=== PATIENT | female | born 1970 | race American Indian/Alaskan Native ===

== ENCOUNTER 2020-11-15 11:42 | Day surgery (SDC) | payer BC, MEDICAID ==
[2020-11-07 12:29] LABS: Hemoglobin 12.8 gm/dl (10.1-14.3); Mean Corpuscular HGB Conc 33 % (30-34); Mean Corpuscular Volume 89 fl (79-97); Platelet Count 281 K/mm3 (140-440); Red Blood Count 4.36 M/mm3 (3.65-5.03); Red Cell Distribution Width 17.2 % (13.2-15.2)
[2020-11-07 12:38] LABS: Blood Urea Nitrogen 15 mg/dL (7-17); Calcium 9.6 mg/dL (8.4-10.2); Hemolysis Index 11
[2020-11-07 13:02] LABS: BUN/Creatinine Ratio 25
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
--- NOTE | 2020-11-14 16:01 | History and Physical Report ---
History of Present Illness Date of examination: 11/14/20 Date of admission: 11/15/2020 Chief complaint: symptomatic uterine fibroids History of present illness: 50y/o with symptomatic uterine fibroids. The patient had a pelvic ultrasound that demonstrated an enlarged fibroid uterus with a dominant leiomyoma measuring 5.2cm. The patient underwent a UFE without significant improvement in her symptoms. Past History Past Medical History: other (uterine fibroids) Past Surgical History: section, other (eye surgery; UFE) Social history: - Obstetrical History : 6 Para: 3 Hx # Term Pregnancies: 3 Number of Pregnancies: 0 Spontaneous Abortions: 1 Induced : 2 Number of Living Children: 3 Medications and Allergies Allergies Allergy/AdvReac Type Severity Reaction Status Date / Time No Known Allergies Allergy Unverified 11/03/13 12:10 Home Medications Medication Instructions Recorded Confirmed Last Taken Type ALBUTEROL NEB's 1 dose INHALATION PRN 11/06/20 11/06/20 Unknown History Albuterol Sulfate 2 puff INHALATION PRN 11/06/20 11/06/20 Unknown History Active Meds: Active Medications Acetaminophen (Acetaminophen 500 Mg Tab) 1,000 mg PO PREOP ANNE Stop: 11/15/20 21:00 Celecoxib (Celecoxib 200 Mg Cap) 200 mg PO PREOP NR Stop: 11/15/20 21:00 Fentanyl (Fentanyl 100 Mcg/2 Ml Inj) 100 mcg IV ONCE PRN PRN Reason: sedation for nerve block Stop: 11/15/20 21:00 Gabapentin (Gabapentin 300 Mg Cap) 300 mg PO PREOP NR Stop: 11/15/20 21:00 Lactated Ringer's (Lactated Ringers) 1,000 mls @ 100 mls/hr IV DIRECT ANNE Stop: 11/15/20 23:59 Magnesium Oxide (Magnesium Oxide 400 Mg Tab) 400 mg PO PREOP ANNE Stop: 11/15/20 21:00 Midazolam HCl (Midazolam 2 Mg/2 Ml Inj) 2 mg IV PREOP NR Stop: 11/15/20 21:00 Review of Systems All systems: negative Genitourinary: vaginal bleeding, pelvic pain - Vital Signs Vital signs: Vital Signs Temp Pulse Resp BP Pulse Ox 97.7 F 68 20 149/92 100 11/07/20 11:50 11/07/20 11:50 11/07/20 11:50 11/07/20 11:50 11/07/20 11:50 Temp Pulse Resp BP Pulse Ox 97.7 F 68 20 149/92 100 11/07/20 11:50 11/07/20 11:50 11/07/20 11:50 11/07/20 11:50 11/07/20 11:50 - Physical Exam Breasts: Positive: deferred Cardiovascular: Regular rate Lungs: Positive: Clear to auscultation Results Result Diagrams: 11/07/20 11:50 11/07/20 11:50 All other labs normal. Assessment and Plan - Patient Problems (1) Leiomyoma Status: Acute Plan to address problem: scheduled for a robotic hysterectomy and BSO (2) Dysmenorrhea Status: Acute (3) Menorrhagia Status: Acute
[~2020-11-15 11:42] MED LIST: ACETAMINOPHEN 500 MG TAB PO SCH; CELECOXIB 200 MG CAP PO NR; GABAPENTIN 300 MG CAP PO NR; LACTATED RINGERS 1,000 ML IV SCH; MAGNESIUM OXIDE 400 MG TAB PO SCH; MIDAZOLAM 2 MG/2 ML INJ IV NR; ceFAZolin/Water 2 GM/20 ML 2 GM/20 ML SYRINGE IV NR; fentaNYL 100 MCG/2 ML INJ IV PRN
[2020-11-15] MEDS ORDERED: HYDROmorphone 1 MG/1 ML INJ IV PRN (11:55)
[2020-11-15] MEDS ORDERED: ONDANSETRON 4 MG/2 ML INJ IV PRN (11:55)
--- NOTE | 2020-11-15 11:59 | Anesthesia Day of Surgery ---
Anesthesia Day of Surgery - Day of Surgery Patient Examined: Yes Patient H&P Reviewed: Yes Patient is NPO: Yes
[2020-11-15] MEDS ORDERED: dexAMETHasone 4 MG/ML VIAL ONE ×2 (12:35→12:36)
[2020-11-15] MEDS ORDERED: BUPIVACAINE-EPINEPHRINE/PF 0.25%-1:200,000 (30 ML) VIAL INFILTRATI ONE (12:35)
[2020-11-15] MEDS ORDERED: NEOMY 40 MG/POLYMYXIN B 200,000 UNITS/ML (GU) AMPULE IR ONE ×2 (12:49→14:14)
[2020-11-15] MEDS ORDERED: LIDOCAINE MPF (2%) 20 MG/1 ML VIAL 5 ML ONE (12:55)
[2020-11-15] MEDS ORDERED: fentaNYL 100 MCG/2 ML INJ ONE (12:55)
[2020-11-15] MEDS ORDERED: propofoL 200 MG/20 ML VIAL IV ONE (12:56)
[2020-11-15] MEDS ORDERED: ROCURONIUM 50 MG/5 ML INJ IV ONE (12:56)
[2020-11-15] MEDS ORDERED: MIDAZOLAM 2 MG/2 ML INJ IV NR ×2 (14:30→16:00)
[2020-11-15] MEDS ORDERED: GLYCOPYRROLATE 0.4 MG/2 ML INJ ONE (14:41)
[2020-11-15] MEDS ORDERED: NEOSTIGMINE 10MG/10 ML INJ MDV ONE (14:41)
[2020-11-15] MEDS ORDERED: dexAMETHasone 20 MG/5 ML VIAL ONE (14:41)
[2020-11-15] MEDS ORDERED: ONDANSETRON 4 MG/2 ML INJ ONE (14:41)
--- NOTE | 2020-11-15 14:48 | Operative Report ---
Operative Report Operative Report: Date of surgery: November 15, 2020 Preoperative diagnoses: Symptomatic uterine fibroids; dysmenorrhea; menorrhagia Postoperative diagnoses: Same as above Procedure: Robotic hysterectomy and bilateral salpingo-oophorectomy Surgeon: Radha Thurman M.D. Web Services Manager: Grazyna Santos Anesthesia: Gen. endotracheal anesthesia Estimated blood loss: 100 mL Pathology: Uterus, cervix, bilateral tubes and ovaries Indication: 50-year-old -0-3-3 with a history of symptomatic uterine fibroids and menorrhagia. Patient failed medical management and elected to undergo definitive surgical management. Procedure: The patient was taken to the operating room and given general endotracheal anesthesia without complication. She is prepped and draped in a normal sterile fashion. A bivalve speculum was placed in the patient's vagina and a single- tooth tenaculum placed on the anterior lip of the cervix. The uterus was sounded with the uterine sound. A stay suture was placed at 12 o'clock on the ectocervix. A [employer] uterine manipulator was placed in the bivalve speculum was then removed. Attention was then turned to the patient's abdomen where a 12 millimeter supra umbilical skin incision was then made. A Veress needle was placed and peritoneal entry was verified water-filled syringe. Insufflation of the peritoneal cavity was performed with CO2 gas. The 12 mm trocar was then placed under direct visualization. An additional 8 mm trocar was placed on the patient's left and right lateral side just opposite of the supraumbilical trocar. An additional 5 mm right lateral trocar was then placed as the accessory port. The Andres Chandler device was used to close the fascia of the 12 mm incision. The patient was then placed in steep Trendelenburg. General survey revealed enlarged uterus with findings of a left ovarian cyst. The patient had evidence of a prior tubal ligation with Filshie clips. The uterus contains small uterine fibroids. The da Magdy robot was then engaged. A fenestrated forcep was placed in arm 2 and a vessel sealer was placed in arm 1. The surgeon then transferred to the surgical console. The infundibulopelvic ligament was then isolated on the right. The vessel sealer was used to coagulate the ligament which was then transected. The tube and ovary were transected from the supply. The round ligament was then coagulated and transected also. The vesicouterine peritoneum was then entered from the patient's right side. The uterine vessels were then coagulated with the vessel sealer. The vessels were then transected . Attention was then turned to the patient's left side where the infundibulopelvic ligament and mesosalpinx were again isolated coagulated and transected. The vesical peritoneum was then entered from the left and joined in the midline. Peritoneum was reflected off of the lower uterine segment. Uterine vessels were then coagulated and then transected. The blood supply to the uterus was adequately contained, a posterior colpotomy was made. The V care ring was visualized. Posterior colpotomy was created with the monopolar scissors. The incision was continued circumferentially until anterior colpotomy was made. The cervix and uterus were amputated from the vaginal cuff. The uterus was then removed along with the tubes and ovaries bilaterally through the vagina and a warm laparotomy sponge was placed and maintain the pneumoperitoneum. The vaginal cuff was then closed in a running fashion with V lock suture. Irrigation of the pelvis was performed. Hemoblast was applied to the incision. The da Magdy robot was then undocked. The trochars were then removed and the pneumoperitoneum released. The skin was then reapproximated with 4-0 Monocryl. The tissue was sent to pathology which included the cervix, uterus, tubes and ovaries. The patient was then successfully extubated. She was then taken to the recovery room in stable condition. All sponge laps and needle counts were correct x2.
[2020-11-15] MEDS ORDERED: MEPERIDINE 25 MG/1 ML INJ ONE (15:15)
[2020-11-15] MEDS ORDERED: MEPERIDINE 25 MG/1 ML INJ IV PRN (15:30)
[2020-11-15] MEDS: HYDROmorphone 1 MG/1 ML INJ IV PRN ×2 (15:43→15:53)
[2020-11-15] MEDS ORDERED: oxyCODONE /ACETAMINOPHEN 5-325MG TAB PO ONE (16:03)
[2020-11-15] MEDS ORDERED: oxyCODONE /ACETAMINOPHEN 5-325MG TAB PO PRN (16:06)
[2020-11-15 17:11] VITALS: BP 141/81
--- NOTE | 2020-11-15 18:29 | Post Anesthesia Evaluation ---
- Post Anesthesia Evaluation Patient Participated: Yes Airway Patent: Yes Stable Respiratory Function: Yes Nausea/Vomiting: No Temp > 96.8F: Yes Pain Manageable: Yes Adequeate Hydration: Yes Anesthesia Complications: No Block Receding Appropriately: Yes Patient on Ventilator: No
== END 2020-11-15 17:25 | disposition home or self-care (01) ==
LOC: OR 11:42
PROVIDERS: ATTEND Obstetrics & Gynecology
DX: D25.9 Leiomyoma of uterus, unspecified (principal); N92.0 Excessive and frequent menstruation with regular cycle; N94.6 Dysmenorrhea, unspecified; J45.909 Unspecified asthma, uncomplicated; E78.00 Pure hypercholesterolemia, unspecified; E66.9 Obesity, unspecified; K21.9 Gastro-esophageal reflux disease without esophagitis; E11.9 Type 2 diabetes mellitus without complications; F41.9 Anxiety disorder, unspecified; Z79.899 Other long term (current) drug therapy; Z98.51 Tubal ligation status; Z98.891 History of uterine scar from previous surgery; Z87.440 Personal history of urinary (tract) infections; Z98.890 Other specified postprocedural states; Z68.41 Body mass index [BMI] 40.0-44.9, adult
CPT/HCPCS: 36415; 58552; 64488; 76942; 80048; 81025; 82962; 84703; 85027; 86850; 86900; 86901; 88307; J0690; J1100; J1170; J2175; J2250; J2405; J2704; J2710; J3010; J7120; S2900; U0003; 64450